=== PATIENT | male | born 1960 | race Caucasian/White ===

== ENCOUNTER 2019-11-01 08:30 | Day surgery (SDC) | payer BC ==
--- NOTE | 2019-10-31 11:11 | PCM.PREANE ---
Preanesthetic Assessment - Anesthesia/Transfusion/Family Hx Anesthesia History: Prior Anesthesia Without Reaction Type of Anesthesia Reaction: Excessive Nausea/Vomiting Family History of Anesthesia Reaction: No Transfusion History: No Prior Transfusion(s) Intubation History: Unknown - Review of Systems General: No Symptoms Pulmonary: No Symptoms (Former smoker: quit 1982 ETOH: whiskey Q night) Cardiovascular: No Symptoms (History of HTN, elevated cholesterol) Gastrointestinal: No Symptoms (diverticulitis) Neurological: No Symptoms, Numbness (History of oral numbness) Other: Reports: None - Physical Assessment NPO Status Date: 10/31/19 NPO Status Time: 22:30 Vital Signs: HR:66 BP:141/96 Resp:16 Temp:97.6 Sat: 97% Height: 1.78 m Weight: 83 kg ASA Class: 2 Mental Status: Alert & Oriented x3 Airway Class: Mallampati = 2 Dentition: Reports: Normal Dentition, [place](s), [place] Thyro-Mental Finger Breadths: 3 Mouth Opening Finger Breadths: 3 ROM/Head Extension: Full Lungs: Clear to Auscultation, Normal Respiratory Effort Cardiovascular: Regular Rate, Regular Rhythm, No Murmurs - Lab Values: All labs reviewed and noted and within acceptable ranges to proceed with scheduled procedure. - Imaging/EKG Impressions: EKG:SR rate=59, RVH or Right VCD in V1 & V2. - Allergies Allergies/Adverse Reactions: Allergies Allergy/AdvReac Type Severity Reaction Status Date / Time No Known Allergies Allergy Verified 11/01/19 08:55 - Anesthesia Plan Pre-Op Medication Ordered: None, Other (Scopalamine patch behind left ear at 0855) - Acknowledgements Anesthesia Type Planned: General Anesthesia (Right ISB with US guidance for post operative pain control requested by Dr. Barreto) Pt an Appropriate Candidate for the Planned Anesthesia: Yes Alternatives and Risks of Anesthesia Discussed w Pt/Guardian: Yes Pt/Guardian Understands and Agrees with Anesthesia Plan: Yes PreAnesthesia Questionnaire - HOME MEDS Home Medications: Home Meds Ubidecarenone [Coq-10] 200 mg PO DAILY 10/31/19 [History] atorvaSTATin [Lipitor] 10 mg PO DAILY 10/31/19 [History] Acetaminophen/HYDROcodone [[place] 325-5 MG] 1 - 2 tab PO Q6H PRN #40 tablet 11/01 [Rx] Cyclobenzaprine [Flexeril] 10 mg PO Q12H PRN #30 tab 11/01/19 [Rx] - CURRENT (IN HOUSE) MEDS Current Meds: Current Medications Lactated Ringer's (Ringers, Lactated) 1,000 mls @ 125 mls/hr IV ASDIRECTED CARLA Stop: 11/01/19 23:00 Lidocaine/Sodium Bicarbonate (Buffered Lidocaine 1% In Ns 8.4%) 0.25 ml IDERM ONETIME PRN PRN Reason: Prior to IV Start Stop: 11/01/19 18:00 Scopolamine (Transderm-Scop) 1.5 mg TOP ONETIME CARLA Stop: 11/01/19 16:00 Sodium Chloride (Saline Flush) 10 ml FLUSH ASDIRECTED PRN PRN Reason: Keep Vein Open Stop: 11/01/19 18:00
[~2019-11-01 08:30] MED LIST: Dexamethasone 4 MG/ML 5 ML MDV ONE; EPINEPHrine 1 MG/1 ML Amp SCH; EPINEPHrine 1 MG/ML SDV ONE; Ketorolac 30 MG/ML SDV ONE; Lactated Ringers 1,000 ML IV SCH; Lactated Ringers 1,000 ML ONE; Lidocaine 1% 2 ML ONE; Lidocaine 1% 6 ML ONE; Lidocaine 1%/Sod Bicarbonate in NS 8.4% 1 ML Syringe IDERM PRN; Midazolam 1 MG/ML 2 ML SDV ONE; Ondansetron 4 MG/2 ML SDV ONE; Propofol 200 MG/20 ML SDV ONE; Rocuronium 50 MG/5 ML Vial ONE; Ropivacaine 0.5% 5 MG/ML 30 ML SDV ONE; Scopolamine 1.5 MG Transdermal Patch TOP SCH; Sodium Chloride 0.9% 10 ML Syringe FLUSH PRN; ceFAZolin 1 GM Vial ONE; fentaNYL 250 MCG/5 ML SDV ONE
--- NOTE | 2019-11-01 09:42 | PCM.SN ---
- Free Text/Narrative Note: Date: 11/01/2019 Time Out: 911 Start: 918 Stop: 928 Surgical Procedure: Right shoulder video arthroscopy with Rotator Cuff Repair, and Subacromial Decompression Diagnosis Right Rotator Cuff Tear Current Procedure: Right interscalene block under US guidance for postoperative pain control requested by Dr. Barreto. Patient chart reviewed, risk/benefits discussed with patient, consent obtained. Patient positioned supine, monitors/alarms on, oxygen placed via nasal cannula at 2 LPM. IV sedation administered: Versed 2mg IV, Fentanyl 50mcg IV given in preop prior to block placement. Right shoulder prepped with two chloropreps. Sterile drapes placed with aseptic technique noted. Under US guidance, right subclavian artery visualized along with the right brachial plexus. Plexus followed up to C6 cricoid level, and area localized with 2mls of 1% lidocaine. 22gauge 2 inch stimiplex needle advanced under US with 0.6mV with stimulation of biceps noted. Good stimulation noted with decreased voltage and absent at 0.3mVs. 1ml of Normal Saline injected with loss of stimulation noted to confirm needle not placed intraneurally. Incremental dosing of 5mls with negative aspiration noted prior to each injection of 0.5% ropivacaine with 1:200,000 epinephrine. Total volume=30mls. Please refer to nurses noted for vital signs. Cherelle Yanes CRNA
[2019-11-01] MEDS ORDERED: fentaNYL 100 MCG/2 ML SDV IVPUSH PRN (10:46)
[2019-11-01] MEDS ORDERED: diphenhydrAMINE 50 MG/ML SDV IVPUSH PRN (10:46)
[2019-11-01] MEDS ORDERED: ePHEDrine 50 MG/ML SDV IVPUSH PRN (10:46)
[2019-11-01] MEDS ORDERED: Ondansetron 4 MG/2 ML SDV IVPUSH PRN (10:46)
[2019-11-01] MEDS ORDERED: HYDROmorphone 0.5 MG/0.5 ML Syringe IVPUSH PRN (10:46)
[2019-11-01] MEDS ORDERED: ePHEDrine Sulfate/0.9% NaCl/Pf 25 MG/5 ML SYRINGE IV ONE (10:49)
[2019-11-01] MEDS ORDERED: Phenylephrine 1 MG in Sodium Chloride 0.9% 10 ML IV SCH (11:00)
--- NOTE | 2019-11-01 12:21 | PCM48HPAN ---
Post Anesthesia Note - EVALUATION WITHIN 48HRS OF ANESTHETIC Vital Signs in Normal Range: Yes Patient Participated in Evaluation: Yes Respiratory Function Stable: Yes Airway Patent: Yes Cardiovascular Function Stable: Yes Hydration Status Stable: Yes Pain Control Satisfactory: Yes Nausea and Vomiting Control Satisfactory: Yes Mental Status Recovered: Yes Vital Signs: Last Vital Signs Temp 36.2 C 11/01/19 11:52 Pulse 64 11/01/19 11:52 Resp 13 11/01/19 11:52 BP 107/71 11/01/19 11:52 Pulse Ox 98 11/01/19 11:55
--- NOTE | 2019-11-01 12:21 | PCM.POSTAN ---
POST ANESTHESIA ASSESSMENT - MENTAL STATUS Mental Status: Alert - VITAL SIGNS Vital Signs: Last Vital Signs Temp 36.2 C 11/01/19 11:52 Pulse 74 11/01/19 11:52 Resp 13 11/01/19 11:52 BP 126/67 11/01/19 11:52 Pulse Ox 97.3 11/01/19 11:55 - RESPIRATORY Respiratory Status: Respiratory Rate WNL, Airway Patent, O2 Saturation Stable - CARDIOVASCULAR CV Status: Pulse Rate WNL, Blood Pressure Stable - GASTROINTESTINAL GI Status: No Symptoms - POST OP HYDRATION Hydration Status: Adequate & Stable
[2019-11-01] MEDS: Acetaminophen/HYDROcodone 325-5 MG Tab PO PRN ×2 (12:54→13:17)
--- NOTE | 2019-11-05 07:00 | PCM.OPNOTE ---
- General Post-Op/Procedure Note Date of Surgery/Procedure: 11/01/19 Operative Procedure(s): right shoulder video arthroscopy with rotator cuff repair, subacromial decompression, extensive debridement and biceps tenotomy Pre Op Diagnosis: right shoulder rotator cuff tear with impingement Post-Op Diagnosis: same with biceps tendinopathy Anesthesia Technique: General ET Tube, Regional Block Primary Surgeon: River Barreto Anesthesia Provider: Cherelle Yanes Manufacturing Management Associate: Jud Boss in mLs: 5 Complications: None Condition: Good
--- NOTE | 2019-11-06 11:13 | OR ---
DATE OF OPERATION: 11/01/2019 SURGEON: River Barreto MD OPERATION PERFORMED: Right shoulder video arthroscopy with rotator cuff repair, subacromial decompression, extensive debridement, and biceps tenotomy. PREOPERATIVE DIAGNOSIS: Right shoulder rotator cuff tear with impingement. POSTOPERATIVE DIAGNOSIS: Right shoulder rotator cuff tear with impingement with biceps tendinopathy. ANESTHESIA: General endotracheal intubation with regional interscalene block. ANESTHESIA PROVIDER: Cherelle Yanes CRNA SENIOR SALES MANAGER: Jud Boss PA-C ESTIMATED BLOOD LOSS: Less than 5 mL. COMPLICATIONS: None. CONDITION: Stable. DESCRIPTION OF PROCEDURE: The patient was identified in the preoperative holding area. Proper site was marked and identified by the surgeon. The patient was taken back to operating theater where after adequate anesthesia, the patient was placed in the lazy left lateral decubitus position. Wedge was placed posteriorly. The patient was secured to the table. At this time, the right upper extremity was then sterilely prepped and draped in usual sterile fashion. OR time-out was performed. The patient received 2 g IV Ancef and 12 pounds of traction was applied to the right upper extremity. Standard posterior incision was made and scope trocar was introduced to the glenohumeral joint. The patient was noted to have only mild chondromalacia noted of grade 1 to the glenoid, especially anteriorly. The patient was noted to have significant biceps fraying as well as significant tendinopathy. Subscapularis tendon was intact. The patient was noted to have full-thickness rotator cuff tear of the anterior portion of the supraspinatus, otherwise no pathology. An anterior portal was then created with the use of outside-in technique and a biceps tenotomy was performed. I did perform a significant debridement of any loose or frayed labrum and attention was then turned to the subacromial space. The patient was noted to have a large amount of bursitis and an extensive debridement was done of the subacromial space and the bursa at this point. He was also noted to have a type 2/3 acromion. The rotator cuff tear was identified. A good bony bleeding bed of the anterior portion of supraspinatus was created using a 4.0 full-radius reed. One 4.75 mm Arthrex SwiveLock anchor was then placed medially and a lateral portal was created. 4 limbs of FiberWire and 2 limbs of FiberTape were then passed through the tear. The 4 limbs of FiberWire were then tied medially for a medial row repair. 1 limb of each of those were then brought out laterally as well as the 2 FiberTapes and another 4.75 mm Arthrex SwiveLock anchor was placed laterally for a double row repair. The sutures were then cut. It was found to have adequate watertight repair of the tendon. A subacromial decompression with a 4.0 full-radius reed was then done back to the smooth posterior border of the acromion and it had good flat surface. Excess saline was drained from the shoulder. 3-0 nylon suture was used for closure of the portal incision. The patient had sterile soft dressing applied and a pillow sling and was sent to the PACU in stable condition. EMILIA /[id number]
== END 2019-11-01 13:55 | disposition home or self-care (01) ==
LOC: JD.SDS 08:30
PROVIDERS: ATTEND Orthopaedic Surgery
DX: M75.121 Complete rotator cuff tear or rupture of right shoulder, not specified as traumatic (principal); M25.811 Other specified joint disorders, right shoulder; M94.211 Chondromalacia, right shoulder; M75.51 Bursitis of right shoulder; G89.18 Other acute postprocedural pain; E78.5 Hyperlipidemia, unspecified; Z87.891 Personal history of nicotine dependence; Z79.899 Other long term (current) drug therapy
CPT/HCPCS: 29823; 29826; 29827; 64415; 87641; 93005; A9270; J0171; J0690; J1100; J1885; J2001; J2250; J2405; J2704; J2795; J3010; J7120; 01630; J2370; J2710

== ENCOUNTER 2020-03-20 06:12 | Day surgery (SDC) | payer BC, OTHER ==
[~2020-03-20 06:12] MED LIST changes: -Dexamethasone 4 MG/ML 5 ML MDV ONE; -EPINEPHrine 1 MG/1 ML Amp SCH; -EPINEPHrine 1 MG/ML SDV ONE; -Ketorolac 30 MG/ML SDV ONE; -Lactated Ringers 1,000 ML ONE; -Lidocaine 1% 2 ML ONE; -Lidocaine 1% 6 ML ONE; -Midazolam 1 MG/ML 2 ML SDV ONE; -Ondansetron 4 MG/2 ML SDV ONE; -Propofol 200 MG/20 ML SDV ONE; -Rocuronium 50 MG/5 ML Vial ONE; -Ropivacaine 0.5% 5 MG/ML 30 ML SDV ONE; -Scopolamine 1.5 MG Transdermal Patch TOP SCH; +Scopolamine 1.5 MG Transdermal Patch TRDERM PRN; -ceFAZolin 1 GM Vial ONE; -fentaNYL 250 MCG/5 ML SDV ONE
--- NOTE | 2020-03-20 06:44 | PCM.PREANE ---
Preanesthetic Assessment - Procedure Proposed Procedure: left - Anesthesia/Transfusion/Family Hx Anesthesia History: Prior Anesthesia Without Reaction Family History of Anesthesia Reaction: No Transfusion History: No Prior Transfusion(s) Intubation History: Unknown - Review of Systems General: No Symptoms Pulmonary: No Symptoms Cardiovascular: No Symptoms Gastrointestinal: No Symptoms Neurological: No Symptoms Other: Reports: None - Physical Assessment NPO Status Date: 03/19/20 NPO Status Time: 22:15 Vital Signs: Last Vital Signs Temp 97.4 F 03/20/20 06:15 Pulse 66 03/20/20 06:15 Resp 16 03/20/20 06:15 BP 132/88 03/20/20 06:15 Pulse Ox 98 03/20/20 06:15 Height: 5 ft 10 in Weight: 83.007 kg ASA Class: 2 Mental Status: Alert & Oriented x3 Airway Class: Mallampati = 1 Dentition: Reports: Normal Dentition Thyro-Mental Finger Breadths: 3 Mouth Opening Finger Breadths: 3 ROM/Head Extension: Full Lungs: Clear to Auscultation, Normal Respiratory Effort Cardiovascular: Regular Rate, Regular Rhythm, No Murmurs - Lab Values: Laboratory Last Values COVID-19 PCR Not detected (NOT DETECT) 03/17/20 09:41 MRSA (PCR) Negative 03/11/20 16:22 - Allergies Allergies/Adverse Reactions: Allergies Allergy/AdvReac Type Severity Reaction Status Date / Time No Known Allergies Allergy Verified 03/20/20 06:32 - Blood Blood Available: No - Acknowledgements Anesthesia Type Planned: PAYAL Pt an Appropriate Candidate for the Planned Anesthesia: Yes Alternatives and Risks of Anesthesia Discussed w Pt/Guardian: Yes Pt/Guardian Understands and Agrees with Anesthesia Plan: Yes PreAnesthesia Questionnaire HEENT History: Reports: Impaired Vision, Other (See Below) Other HEENT History: wears glasses, lip swelling, burning mouth syndrome, tongue numbness Cardiovascular History: Reports: High Cholesterol Respiratory History: Reports: None Gastrointestinal History: Reports: Diverticulosis Genitourinary History: Reports: None SINGER BACK TENDER History: Reports: None Musculoskeletal History: Reports: Osteoarthritis Neurological History: Reports: Other (See Below) Other Neuro History: oral/facial numbness and tingling Psychiatric History: Reports: None Endocrine/Metabolic History: Reports: None Hematologic History: Reports: None Immunologic History: Reports: None Oncologic (Cancer) History: Reports: None Other Dermatologic History: lip swelling - Past Surgical History Head Surgeries/Procedures: Reports: None HEENT Surgical History: Reports: None Cardiovascular Surgical History: Reports: None Respiratory Surgical History: Reports: None GI Surgical History: Reports: Colonoscopy Female Surgical History: Reports: None Male Surgical History: Reports: None Endocrine Surgical History: Reports: None Neurological Surgical History: Reports: None Musculoskeletal Surgical History: Reports: Arthroscopic Knee, Shoulder Surgery Oncologic Surgical History: Reports: None Dermatological Surgical History: Reports: None - SUBSTANCE USE Smoking Status *Q: Former Smoker Tobacco Use Within Last Twelve Months: No Second Hand Smoke Exposure: No Days Per Week of Alcohol Use: 7 Number of Drinks Per Day: 1 Total Drinks Per Week: 7 Recreational Drug Use History: No - HOME MEDS Home Medications: Home Meds Ubidecarenone [Coq-10] 200 mg PO DAILY 10/31/19 [History] atorvaSTATin [Lipitor] 10 mg PO DAILY 10/31/19 [History] - CURRENT (IN HOUSE) MEDS Current Meds: Current Medications Lactated Ringer's (Ringers, Lactated) 1,000 mls @ 125 mls/hr IV ASDIRECTED CARLA Stop: 03/20/20 23:00 Last Admin: 03/20/20 06:32 Dose: 125 mls/hr Documented by: Lidocaine/Sodium Bicarbonate (Buffered Lidocaine 1% In Ns 8.4%) 0.25 ml IDERM ONETIME PRN PRN Reason: Prior to IV Start Stop: 03/20/20 18:00 Last Admin: 03/20/20 06:32 Dose: 0.25 ml Documented by: Scopolamine (Transderm-Scop) 1.5 mg TRDERM ONETIME PRN PRN Reason: PONV Stop: 03/20/20 18:00 Last Admin: 03/20/20 06:21 Dose: 1.5 mg Documented by: Sodium Chloride (Saline Flush) 10 ml FLUSH ASDIRECTED PRN PRN Reason: Keep Vein Open Stop: 03/20/20 18:00
[2020-03-20] MEDS ORDERED: Lidocaine 1% 4 ML ONE (06:48)
[2020-03-20] MEDS ORDERED: Propofol 200 MG/20 ML SDV ONE ×3 (06:48→08:04)
[2020-03-20] MEDS ORDERED: Midazolam 1 MG/ML 2 ML SDV ONE (06:48)
[2020-03-20] MEDS ORDERED: fentaNYL 100 MCG/2 ML SDV ONE (06:48)
[2020-03-20] MEDS ORDERED: Sodium Bicarbonate 8.4% 50 MEQ/50 ML SDV ONE (06:49)
[2020-03-20] MEDS ORDERED: Lidocaine 0.5% 50 ML SDV ONE (06:49)
[2020-03-20] MEDS ORDERED: ceFAZolin 1 GM Vial ONE (06:52)
[2020-03-20] MEDS ORDERED: Bupivacaine 0.25% 10 ML SDV ONE (06:53)
[2020-03-20] MEDS ORDERED: fentaNYL 100 MCG/2 ML SDV IVPUSH PRN (08:00)
[2020-03-20] MEDS ORDERED: Ketorolac 30 MG/ML SDV ONE (08:29)
--- NOTE | 2020-03-20 08:51 | PCM48HPAN ---
Post Anesthesia Note - EVALUATION WITHIN 48HRS OF ANESTHETIC Vital Signs in Normal Range: Yes Patient Participated in Evaluation: Yes Respiratory Function Stable: Yes Airway Patent: Yes Cardiovascular Function Stable: Yes Hydration Status Stable: Yes Pain Control Satisfactory: Yes Nausea and Vomiting Control Satisfactory: Yes Mental Status Recovered: Yes Vital Signs: Last Vital Signs Temp 97.3 F 03/20/20 08:38 Pulse 62 03/20/20 08:38 Resp 12 03/20/20 08:38 BP 105/71 03/20/20 08:38 Pulse Ox 95 03/20/20 08:38 0838 105/71 62 12 97.3 93%
--- NOTE | 2020-03-20 08:57 | CR ---
Left wrist: 4 fluoroscopic spot views left wrist were obtained utilizing C-arm device. Comparison: No previous left wrist study is available. Findings: Study shows resection of the trapezium bone. [place] device is noted between the 1st and 2nd metacarpals. No additional abnormality is seen. Fluoroscopy time given as 22.3 seconds. Impression: 1. Procedural study as described above. Diagnostic code #2 This report was dictated in MDT
[2020-03-20] MEDS ORDERED: Acetaminophen/HYDROcodone 325-5 MG Tab PO SCH (09:00)
--- NOTE | 2020-03-27 10:01 | PCM.OPNOTE ---
- General Post-Op/Procedure Note Date of Surgery/Procedure: 03/20/20 Operative Procedure(s): left wrist trapeziectomy with tight rope suspension arthroplasty Pre Op Diagnosis: left first carpometacarpal arthritis Post-Op Diagnosis: Same Anesthesia Technique: MAC, Regional Block Primary Surgeon: River Barreto Anesthesia Provider: Jeremi Austin Airport Manager: Jud Boss EBL in mLs: 5 Complications: None Condition: Good
--- NOTE | 2020-03-27 11:27 | OR ---
DATE OF OPERATION: 03/20/2020 SURGEON: River Barreto MD OPERATION PERFORMED: Left wrist trapeziectomy with TightRope suspension arthroplasty. PREOPERATIVE DIAGNOSIS: Left first carpometacarpal joint arthritis. POSTOPERATIVE DIAGNOSIS: Left first carpometacarpal joint arthritis. ANESTHESIA: MAC with regional Patricia block. ANESTHESIA PROVIDER: Jeremi Austin CRNA KILN FIRER HELPER: Jud Boss PA-C ESTIMATED BLOOD LOSS: Less than 5 mL. COMPLICATIONS: None. CONDITION: Stable. DESCRIPTION OF PROCEDURE: The patient was identified in the preoperative holding area. Proper site was marked and identified by the surgeon. The patient was taken back to the operative theater, where after adequate anesthesia, the patient's left upper extremity was sterilely prepped and draped in the usual sterile fashion. OR time-out was performed. The patient received 2 g IV Ancef before the Patricia block. At this time, incision was made centered over the first carpometacarpal joint. This was taken down to the tendon they were retracted volarly. The neurovascular bundle proximally was retracted and protected, and capsulotomy was performed. Takedown of the capsule was done over the trapezium. C-arm fluoroscopy was utilized to make sure that we were in the proper position. At this time with the use of a rongeur and an osteotome, the trapezium was then removed in whole. It was found to be completely removed with the C-arm fluoroscopy. At this time, a guide pin was placed in the base of the first metacarpal into the metaphyseal region of the second metacarpal making sure that the patient's palm could go flat and oppose the thumb with a small digit. The Endobutton and suture were shuttled up through the first metacarpal and through the second metacarpal proper tension was held. The Endobutton was then placed on the second metacarpal and suture was tied in proper tension with good bounce back of the first metacarpal under C-arm fluoroscopy. Once it was found to be in adequate position and it was secured, normal saline was irrigated through the wound. 3-0 Vicryl was used for closure of the capsule as well as subcutaneous layers and Monocryl was used for closure of the skin. Dermabond was applied. The patient was placed in a sterile soft dressing and a radial gutter splint, and sent to the PACU in stable condition. MMODAL /[id number] MIQUEL
== END 2020-03-20 10:05 | disposition home or self-care (01) ==
LOC: JD.SDS 06:12
PROVIDERS: ATTEND Orthopaedic Surgery
DX: M18.12 Unilateral primary osteoarthritis of first carpometacarpal joint, left hand (principal); E78.00 Pure hypercholesterolemia, unspecified; E78.5 Hyperlipidemia, unspecified; Z87.891 Personal history of nicotine dependence; Z11.59 Encounter for screening for other viral diseases; Z79.899 Other long term (current) drug therapy
CPT/HCPCS: 25447; 76000; 87635; 87641; A9270; C1776; J0690; J1885; J2001; J2250; J2704; J3490; J7120; 01830; J3010; U0002

== ENCOUNTER 2020-07-24 08:30 | Day surgery (SDC) | payer BC ==
[~2020-07-24 08:30] MED LIST changes: -Scopolamine 1.5 MG Transdermal Patch TRDERM PRN
[2020-07-24] MEDS ORDERED: Bupivacaine 0.25% 10 ML SDV ONE (08:33)
--- NOTE | 2020-07-24 08:48 | PCM.PREANE ---
Preanesthetic Assessment - Anesthesia/Transfusion/Family Hx Anesthesia History: Prior Anesthesia Without Reaction Family History of Anesthesia Reaction: No Transfusion History: No Prior Transfusion(s) Intubation History: Unknown - Review of Systems General: No Symptoms Pulmonary: No Symptoms Cardiovascular: No Symptoms Gastrointestinal: No Symptoms Neurological: No Symptoms Other: Reports: None - Physical Assessment NPO Status Date: 07/23/20 NPO Status Time: 00:00 Height: 1.78 m Weight: 80.558 kg ASA Class: 2 Mental Status: Alert & Oriented x3 Airway Class: Mallampati = 1 Dentition: Reports: Normal Dentition, [place](s) Thyro-Mental Finger Breadths: 3 Mouth Opening Finger Breadths: 3 ROM/Head Extension: Full Lungs: Clear to Auscultation, Normal Respiratory Effort Cardiovascular: Regular Rate, Regular Rhythm - Lab Values: Laboratory Last Values MRSA (PCR) Negative 07/15/20 11:42 - Allergies Allergies/Adverse Reactions: Allergies Allergy/AdvReac Type Severity Reaction Status Date / Time No Known Allergies Allergy Verified 03/20/20 06:32 - Blood Blood Available: No Product(s) Available: None - Anesthesia Plan Pre-Op Medication Ordered: None - Acknowledgements Anesthesia Type Planned: PAYAL Pt an Appropriate Candidate for the Planned Anesthesia: Yes Alternatives and Risks of Anesthesia Discussed w Pt/Guardian: Yes Pt/Guardian Understands and Agrees with Anesthesia Plan: Yes PreAnesthesia Questionnaire HEENT History: Reports: Impaired Vision, Other (See Below) Other HEENT History: wears glasses, lip swelling, burning mouth syndrome, tongue numbness Cardiovascular History: Reports: High Cholesterol Respiratory History: Reports: None Gastrointestinal History: Reports: Diverticulosis Genitourinary History: Reports: None GLASS DRILLER History: Reports: None Musculoskeletal History: Reports: Osteoarthritis, Other (See Below) Other Musculoskeletal History: idiopathic osteoarthritis Neurological History: Reports: Other (See Below) Other Neuro History: oral/facial numbness and tingling Psychiatric History: Reports: None Endocrine/Metabolic History: Reports: None Hematologic History: Reports: None Immunologic History: Reports: None Oncologic (Cancer) History: Reports: None Other Dermatologic History: lip swelling - Infectious Disease History Infectious Disease History: Reports: None - Past Surgical History Head Surgeries/Procedures: Reports: None HEENT Surgical History: Reports: None Cardiovascular Surgical History: Reports: None Respiratory Surgical History: Reports: None GI Surgical History: Reports: Colonoscopy Female Surgical History: Reports: None Male Surgical History: Reports: None Endocrine Surgical History: Reports: None Neurological Surgical History: Reports: None Musculoskeletal Surgical History: Reports: Arthroscopic Knee, Shoulder Surgery, Other (See Below) Other Musculoskeletal Surgeries/Procedures:: left CMC arthroplasty, bilateral rotator cuff repairs, knee arthroscopy Oncologic Surgical History: Reports: None Dermatological Surgical History: Reports: None - SUBSTANCE USE Tobacco Use Status *Q: Former Tobacco User Tobacco Use Within Last Twelve Months: No Second Hand Smoke Exposure: No Days Per Week of Alcohol Use: 7 Number of Drinks Per Day: 1 Total Drinks Per Week: 7 Recreational Drug Use History: No - HOME MEDS Home Medications: Home Meds Ubidecarenone [Coq-10] 200 mg PO DAILY 10/31/19 [History] atorvaSTATin [Lipitor] 10 mg PO DAILY 10/31/19 [History] Multivitamin 1 tab PO DAILY 07/23/20 [History] traMADol [Ultram] 50 - 100 mg PO Q6H PRN #20 tab 07/24/20 [Rx] - CURRENT (IN HOUSE) MEDS Current Meds: Current Medications Lactated Ringer's (Ringers, Lactated) 1,000 mls @ 125 mls/hr IV ASDIRECTED CARLA Stop: 07/24/20 23:00 Influenza Virus Vaccine (Pharmacy To Dose - Influenza Vaccine) 1 each IM ONETIME CARLA Stop: 07/24/20 09:00 Influenza Virus Vaccine (Fluzone Quad [id number] Syringe) 60 mcg IM .ONCE ONE Stop: 07/24/20 11:01 Lidocaine/Sodium Bicarbonate (Buffered Lidocaine 1% In Ns 8.4%) 0.25 ml IDERM ONETIME PRN PRN Reason: Prior to IV Start Stop: 07/24/20 23:00 Sodium Chloride (Saline Flush) 10 ml FLUSH ASDIRECTED PRN PRN Reason: Keep Vein Open Stop: 07/24/20 23:00 Discontinued Medications Bupivacaine HCl (Sensorcaine-Mpf 0.25%) Confirm Administered Dose 10 ml .ROUTE .STK-MED ONE Stop: 07/24/20 08:34
[2020-07-24] MEDS ORDERED: Ondansetron 4 MG/2 ML SDV ONE (08:53)
[2020-07-24] MEDS ORDERED: Propofol 200 MG/20 ML SDV ONE ×3 (08:53→10:45)
[2020-07-24] MEDS ORDERED: Lidocaine 1% 4 ML ONE (08:54)
[2020-07-24] MEDS ORDERED: Midazolam 1 MG/ML 2 ML SDV ONE (08:54)
[2020-07-24] MEDS ORDERED: ceFAZolin 1 GM Vial ONE (08:54)
[2020-07-24] MEDS ORDERED: fentaNYL 100 MCG/2 ML SDV ONE (08:54)
[2020-07-24] MEDS ORDERED: Sodium Bicarbonate 8.4% 50 MEQ/50 ML SDV ONE (08:58)
[2020-07-24] MEDS ORDERED: Lidocaine 0.5% 50 ML SDV ONE (08:58)
[2020-07-24] MEDS ORDERED: FLU VACC QS2020-21(6MOS UP)/PF 60 MCG/0.5 ML SYRINGE IM ONE (11:00)
--- NOTE | 2020-07-24 11:27 | PCM48HPAN ---
Post Anesthesia Note - EVALUATION WITHIN 48HRS OF ANESTHETIC Vital Signs in Normal Range: Yes Patient Participated in Evaluation: Yes Respiratory Function Stable: Yes Airway Patent: Yes Cardiovascular Function Stable: Yes Hydration Status Stable: Yes Pain Control Satisfactory: Yes Nausea and Vomiting Control Satisfactory: Yes Mental Status Recovered: Yes Vital Signs: Last Vital Signs Temp 36.6 C 07/24/20 08:30 Pulse 65 07/24/20 08:30 Resp 16 07/24/20 08:30 BP 119/87 07/24/20 08:30 Pulse Ox 96 07/24/20 08:30 - COMMENTS/OBSERVATIONS Free Text/Narrative:: no anesthesia complications noted
[2020-07-24] MEDS ORDERED: traMADol 50 MG Tab PO SCH (11:51)
--- NOTE | 2020-07-24 12:14 | CR ---
PROCEDURE INFORMATION: Exam: [place] Fluoroscopy, Up to 1 Hour Physician Time; Radiologist Not Present For Fluoroscopy Exam date and time: 07/24/2020 11:37 AM Age: 60 years old Clinical indication: Device placement TECHNIQUE: Imaging protocol: Fluoroscopy , up to 1 hour physician or other qualified health career technical education instructor time. This radiologist did not supervise this procedure. Exam supervised by facility personnel. Report for radiation dosage reporting and documentation only. COMPARISON: No relevant prior studies available. RADIATION DOSE METRICS: Fluoroscopy time (seconds): 7.2 seconds Number of fluoro spot images: 2 Reference air kerma (STUART): Not provided FINDINGS: Procedural imaging: Wrist, side not specified. Images taken during resection arthroplasty 1st CMC joint Notes: Fluoroscopy supervised by facility personnel. See also separate procedure report. IMPRESSION: Fluoroscopy dosage documentation. See also separate procedure notes. Thank you for allowing us to participate in the care of your patient. Dictated and Authenticated by: Zaria Alcala MD 07/24/2020 12:43 PM Central Time ([place] & [place]) MIQUEL
--- NOTE | 2020-08-06 15:59 | PCM.OPNOTE ---
- General Post-Op/Procedure Note Date of Surgery/Procedure: 07/24/20 Operative Procedure(s): right wrist trapeziectomy with tight rope suspension Pre Op Diagnosis: right first basilar thumb joint arthritis Post-Op Diagnosis: Same Anesthesia Technique: MAC, Regional Block Primary Surgeon: River Barreto Anesthesia Provider: Doyle Guillermo Dietary Services Manager: Jud Boss EBL in mLs: 5 Complications: None Condition: Good
--- NOTE | 2020-08-11 11:03 | OR ---
DATE OF OPERATION: 07/24/2020 SURGEON: River Barreto MD OPERATION PERFORMED: Right wrist trapeziectomy with TightRope suspension. PREOPERATIVE DIAGNOSIS: Right first basilar thumb joint arthritis. POSTOPERATIVE DIAGNOSIS: Right first basilar thumb joint arthritis. ANESTHESIA: MAC with regional block. ANESTHESIA PROVIDER: Doyle Guillermo CRNA LEAD WORKER OF HOUSEKEEPING AND LAUNDRY: Jud Boss PA-C ESTIMATED BLOOD LOSS: 5 mL. COMPLICATIONS: None. CONDITION: Stable. DESCRIPTION OF PROCEDURE: The patient was identified in the preoperative holding area where proper site was marked and identified by the surgeon. The patient was taken back to the operating theater, where after adequate anesthesia with [place] block and MAC, the patient's right upper extremity was sterilely prepped and draped in the usual sterile fashion. OR time-out was performed. The patient received 2 g IV Ancef before the Patricia block. At this time, standard volar incision was made centered over the base of the first CMC joint. This was taken down to the tendons. The tendons were retracted dorsally. The neurovascular bundle was found proximally in the incision and was retracted. Capsulotomy was then performed and then resection of the trapezium using rongeur as well as an osteotome was done. C- arm fluoroscopy was utilized during the procedure making sure the entirety of the trapezium was removed and it was at that time. Once it was removed, the guide pin for the [employer] TightRope was placed in the base of the first metacarpal up into the second metacarpal metaphyseal region. Incision was made over the second metacarpal. The pin was found and was brought through the skin along with the TightRope up through the second metacarpal. Tension was applied. C-arm fluoroscopy was utilized to make sure that it was tensioned properly. I was able to get the patient's palm flat on the table and apposed the thumb. At this time, the Endobutton was applied to the second metacarpal and was tied and had good bounce back. Adequate saline was then irrigated through the wound. Final C-arm fluoroscopy showed it to be in adequate position. 2-0 Vicryl was used subcutaneously and Monocryl was used for closure of the skin. The patient was placed in a sterile soft dressing and a radial thumb spica splint and sent to PACU in stable condition. MMODAL /[id number]
== END 2020-07-24 12:35 | disposition home or self-care (01) ==
LOC: JD.SDS 08:30
PROVIDERS: ATTEND Orthopaedic Surgery
DX: M19.041 Primary osteoarthritis, right hand (principal); E78.00 Pure hypercholesterolemia, unspecified; Z98.890 Other specified postprocedural states; Z79.899 Other long term (current) drug therapy; Z87.891 Personal history of nicotine dependence
CPT/HCPCS: 25210; 76000; 87641; 90471; 90686; A9270; C1776; J0690; J2001; J2250; J2405; J2704; J3010; J3490; J7120; 01810; G0008